=== PATIENT | male | born 1970 | race Caucasian/White ===

== ENCOUNTER 2017-07-14 06:56 | Emergency (ER) | payer MEDICAID ==
[~2017-07-14] VITALS: Ht 180.3 cm; Wt 78.4 kg
[2017-07-14 06:58] VITALS: BP 180/87; PULSE 75; RESP 16; TEMP 98.5; O2SAT 99
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
[2017-07-14] MEDS ORDERED: LIDOCAINE HCL 1% 50 ML VIAL INFIL ONE (07:30)
[2017-07-14] MEDS ORDERED: TETANUS/DIPHTHERIA TOXOID ADULT 0.5 ML VIAL IM ONE (07:30)
[2017-07-14] MEDS ORDERED: KETOROLAC TROMETHAMINE 60 MG/2 ML (IM) VIAL IM ONE (07:30)
--- NOTE | 2017-07-14 07:35 | RADRPT ---
EXAM DATE/TIME: 07/14/2017 07:24 [facility] COMPARISON: No previous studies available for comparison. INDICATIONS : Left ankle pain post fall. MEDICAL HISTORY : None. SURGICAL HISTORY : None. ENCOUNTER: Initial ACUITY: 2 days PAIN SCORE: 8/10 LOCATION: Left lateral ankle FINDINGS: Two view exam was performed of the left ankle. The bony structures are in normal alignment. No evid ence of fracture, dislocation, and there is soft tissue swelling laterally. No radiopaque foreign otis dies are seen. Bony mineralization is normal. Calcaneal spur at insertion of plantar cirrhosis. CONCLUSION: Soft tissue swelling moderately. No acute bony injury. Kenneth Bauer MD on July 14, 2017 at 7:33 Board Certified Radiologist. This report was verified electronically.
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
[2017-07-14] MEDS ORDERED: TYLE325T PO (09:10)
[2017-07-14] MEDS ORDERED: AUGM875T3 PO (09:10)
[2017-07-14] MEDS ORDERED: AMOXICILLIN/CLAVULANATE K 875 MG TAB PO ONE (09:15)
== END 2017-07-14 09:28 | disposition home or self-care (01) ==
LOC: PHED 06:56
DX: S61.257A Open bite of left little finger without damage to nail, initial encounter (principal); S99.912A Unspecified injury of left ankle, initial encounter; Y04.1XXA Assault by human bite, initial encounter; Z72.0 Tobacco use
CPT/HCPCS: 73120; 73600; 90471; 90714; 96372; 99284; J1885